=== PATIENT | male | born 1985 | race Caucasian/White ===

== ENCOUNTER 2016-03-08 20:08 | Emergency (ER) | payer OTHER ==
[2016-03-08] MEDS ORDERED: Sodium Chloride 0.9% 1,000 ML ONE (20:29)
[2016-03-08] MEDS ORDERED: Ondansetron HCl/PF 4 MG/2 ML Vial ONE (20:29)
[2016-03-08 20:38] LABS: #Basophils 0.1 thou/uL (0.0-0.2); #Eosinphils 0.3 thou/uL (0.0-0.7); #Lymphocytes 1.8 thou/uL (1.20-3.40); #Monocytes 0.6 thou/uL (0.11-0.59); #Neutrophils 8.1 thou/uL (1.40-6.50); %Basophils 0.7 % (0.0-1.0); %Eosinophils 2.9 % (0.0-10.0); %Lymphocytes 16.4 % (21.0-51.0); %Monocytes 5.1 % (0.0-10.0); Mean Platelet Volume 8.9 fL (7.4-10.4); Red Blood Cell (RBC) Count 4.94 mill/uL (4.70-6.10); White Blood Cell (WBC) Count 10.8 thou/uL (4.8-10.8)
[2016-03-08 20:56] LABS: ALT (SGPT) 27 U/L (0-55); AST (SGOT) 19 U/L (5-34); Alkaline Phosphatase 94 U/L (40-150); Anion Gap 14 mmol/L (10-20); BUN (Urea Nitrogen) 12 mg/dL (8.9-20.6); Bilirubin, Total 0.6 mg/dL (0.2-1.2); Calc. Creatinine Clearance 0 mL/min (70-130); Calcium 9.4 mg/dL (7.8-10.44); Carbon Dioxide 24 mmol/L (22-29); Chloride 106 mmol/L (98-107); Estimated GFR-MDRD Greater than 90; Globulin 3.3 g/dL (2.4-3.5); Protein, Total 7.2 g/dL (6.0-8.3)
--- NOTE | 2016-03-08 23:05 | ERRECORD ---
[facility] EMERGENCY RECORD HPI NAUSEA/VOMITING/DIARRHEA (20:24 BPIC) CHIEF COMPLAINT: Patient presents for evaluation of nausea, Patient presents for evaluation of vomiting, Patient presents for evaluation of diarrhea. HISTORIAN: History provided by patient, Pt with N/V/D that has started within the past 24-48 hours. No unusual travel, food or sick contacts. Mild non focal abdominal cramping that has now stopped. still feels slightly light headed. LOCATION FEMALE: Symptoms are generalized. TIME COURSE: Gradual onset of symptoms, There has been no change in the patient's symptoms over time. ASSOCIATED WITH FEMALE: No associated bright red blood per rectum, No associated hematemesis. EXACERBATED BY: Patient's condition exacerbated by nothing. RELIEVED BY: Patient's condition relieved by nothing. ROS (20:24 BPIC) CONSTITUTIONAL: Negative constitutional review of systems, Historian denies chills, Historian denies fever. EYES: Negative eye review of systems. ENT: Negative ears, nose, throat review of systems. CARDIOVASCULAR: Negative cardiovascular review of systems, Historian denies chest pain, Historian denies palpitations. RESPIRATORY: Negative respiratory review of systems, Historian denies cough, Historian denies shortness of breath. GI: see hpi. MUSCULOSKELETAL: Negative musculoskeletal review of systems. SKIN: Negative skin review of systems. NEUROLOGIC: Negative neurologic review of systems. ENDOCRINE: Negative endocrine review of systems. HEMO/LYMPHATIC: Normal hematologic/lymphatic system review. PSYCHIATRIC: Negative psychiatric review of systems. NOTES: All other ROS is negative except as listed in HPI. PAST MEDICAL HISTORY MEDICAL HISTORY: No past medical history, VERIFEID 03/08/2015. (20:21 DOEC) MALE SURGICAL HISTORY: Surgical history of tonsillectomy. VERIFEID 03/08/2015. (20:21 DOEC) PSYCHIATRIC HISTORY: No previous psychiatric history. VERIFEID 03/08/2015. (20:21 DOEC) SOCIAL HISTORY: Patient drinks socially, Patient denies drug use, Patient currently uses tobacco, smokes cigarettes, Occasional or some day smoker, Patient is a former tobacco user, smoked cigarettes, Patient quit smoking less than 10 years ago VERIFEID 03/08/2015. (20:21 DOEC) NOTES: I have reviewed and agree with the &a-1R&a+25V*p+0X*[id number]*c202B*c15G*c2P*p-0X&a-25V&a+1R Name: Jose Alberto Cruz : 1985 M30 MedRec: [id number] AcctNum: [id number] Prepared: Carol Mar 09, 2016 03:39 by Interface Page 1 of 3 pMD [facility] EMERGENCY RECORD PMH/PSxH/FamHx/SocHx obtained by the nurse. (20:24 BPIC) KNOWN ALLERGIES No Known Allergies (Unconfirmed) No Known Drug Allergies NONE (Unconfirmed) CURRENT MEDICATIONS (20:18 DOEC) None VITAL SIGNS VITAL SIGNS: BP: 159/72, Pulse: 105, Resp: 22 (Non-Labored), O2 sat: 98 on Room Air, Time: 03/08/2016 20:18. (20:18 DOEC) BP: 135/62, Pulse: 94, Resp: 18, Pain: 0, O2 sat: 95 on Room Air, Time: 03/08/2016 20:35. (20:35 DOEC) BP: 135/62, Pulse: 91, Resp: 18, O2 sat: 98 on Room Air, Time: 03/08/2016 20:39. (20:39 [facility]) Temp: 97.9 (Oral), Time: 03/08/2016 20:36. (20:36 DOEC) PHYSICAL EXAM (20:24 BPIC) CONSTITUTIONAL: Vital signs reviewed, Patient appears non toxic, Patient alert and oriented to person, place and time, Pt is in no apparent distress. HEAD: Head exam included findings of head atraumatic, normocephalic. EYES: Eye exam included findings of eyelids normal to inspection, Pupils equally round and reactive to light, Extraocular muscles intact. ENT: ENT exam normal, Nose exam normal, no nasal deformity, no bleeding from nares, Pharynx exam normal, Mouth exam normal, mucous membranes moist. NECK: Neck exam included findings of normal range of motion, Trachea midline. RESPIRATORY CHEST: Respiratory and chest exam normal, Breath sounds clear, No wheezing, No rales, Chest exam included findings of chest movement symmetrical, Chest expansion equal. CARDIOVASCULAR: Cardiovascular assessment normal, Cardiovascular exam included findings of heart rate tachycardic rate and rhythm, Heart sounds normal. ABDOMEN FEMALE: Abdominal exam included findings of abdomen nontender, Bowel sounds normal, no mass, no pulsatile masses, no peritoneal signs. BACK: Back exam included findings of normal inspection, range of motion normal, no costovertebral angle tenderness. UPPER EXTREMITY: Upper extremity exam included findings of inspection normal, Range of motion normal. LOWER EXTREMITY: Lower extremity exam included findings of inspection normal, Range of motion normal. NEURO: Neuro exam findings include patient oriented to person, place and time, Speech normal, no focal motor deficits, no &a-1R&a+25V*p+0X*d5425U*c202B*c15G*c2P*p-0X&a-25V&a+1R Name: Jose Alberto rCuz : 1985 M30 MedRec: [id number] AcctNum: [id number] Prepared: Carol Mar 09, 2016 03:39 by Interface Page 2 of 3 pMD [facility] EMERGENCY RECORD focal sensory deficits. SKIN: Skin exam included findings of skin warm, dry, and normal in color. LYMPHATIC: Lymphatic exam normal. PSYCHIATRIC: Psychiatric exam included findings of patient oriented to person place and time, Normal affect. MEDICATION ADMINISTRATION SUMMARY Drug Name: ondansetron HCl intravenous, Dose Ordered: 8 mg, Route: IV Push, Status: Given, Time: 20:33 03/08/2016, Drug Name: sodium chloride 0.9 % intravenous, Dose Ordered: 1000 mL, Route: IV Fluid Infusion, Status: Given, Time: 20:32 03/08/2016, Detailed record available in Medication Service section. DOCTOR NOTES (20:24 BPIC) TEXT: N/V/D symptomatic treatment, icreased fluid intake and Return to the ED with any development of increasing abdominal pain. likely viral gastroenteritis, but risks of appendicitis discussed I discussed the diagnosis with the patient prior to discharge. All questions were answered. There is no indication for admission currently and the patient will follow up with his primary care physician. Any pertinent labs or imaging was reviewed and dicussed with the patient. If any new or emergent symptoms occur, the patient will return to the emergency department. PROBLEM LIST No recorded problems DIAGNOSIS (21:11 BPIC) FINAL: PRIMARY: Nausea with vomiting, ADDITIONAL: near syncope. PRESCRIPTION (21:17 BPIC) Zofran ODT: TABLET,DISINTEGRATING : 8 mg : ORAL : Quantity: 8 Unit: mg Route: ORAL Schedule: every 6 hours PRN Dispense: 20 Unit: tab(s) May substitute. Refills: No Refills . NOTES: No Refills. DISPOSITION PATIENT: Disposition Type: Discharge, Disposition: *Discharge Home, Condition: Good. (21:11 BPIC) Patient left the department. (21:53 DOEC) Pedro: BPIC=MD Cinthia, Frank DOEC=ORIANA Helton, Edu [facility]=ORIANA Lloyd, Nicole &a-1R&a+25V*p+0X*[id number]*c202B*c15G*c2P*p-0X&a-25V&a+1R Name: Jose Alberto Cruz [place] : 1985 M30 MedRec: [id number] AcctNum: [id number] Prepared: Carol Mar 09, 2016 03:39 by Interface Page 3 of 3 pMD MTDD
--- NOTE | 2016-03-08 23:13 | PICIS ---
[facility] EMERGENCY RECORD TRIAGE (20:17 DOEC) TRIAGE NOTES: Pt, states became dizzy, nauseous, and vomited (food contents) approx. 45min CONCESSION SUPERVISOR. (20:17 DOEC) PATIENT: NAME: Jose Alberto Cruz, AGE: 30, GENDER: male, : Sun1985, TIME OF GREET: SunMar 08, 2016 20:08, PREFERRED LANGUAGE: Algerian, ETHNICITY: Not or , ECODE BILLING MAP: [facility], SSN: [id number], Zip Code: [address], KG WEIGHT: [phone], PHONE: , , , PERSON ID: [id number], PCP: DO Santizo Eric. (20:17 DOEC) COMPLAINT: WEAKNESS. (20:17 DOEC) ADMISSION: URGENCY: 3 Urgent, ADMISSION SOURCE: Home, TRANSPORT: Walk-in, BED: ER -03. (20:17 DOEC) SIRS SCORING: Heart Rate 55-109 (0), Temp range 96.8-101.1 (0), respiratory rate 12-24 (0), Mental Status altered: no (0), Infection or Suspected Infection: No. (20:21 DOEC) TRIAGE SCREENING: Patient denies suicidal ideation, Patient denies presence of domestic violence. (20:21 DOEC) PROVIDERS: TRIAGE NURSE: Edu Helton RN. (20:17 DOEC) PREVIOUS VISIT ALLERGIES: No Known Allergies. (20:17 DOEC) No Known Allergies. (20:21 DOEC) KNOWN ALLERGIES No Known Allergies (Unconfirmed) No Known Drug Allergies NONE (Unconfirmed) CURRENT MEDICATIONS (20:18 DOEC) None VITAL SIGNS VITAL SIGNS: BP: 159/72, Pulse: 105, Resp: 22 (Non-Labored), O2 sat: 98 on Room Air, Time: 03/08/2016 20:18. (20:18 DOEC) BP: 135/62, Pulse: 94, Resp: 18, Pain: 0, O2 sat: 95 on Room Air, Time: 03/08/2016 20:35. (20:35 DOEC) BP: 135/62, Pulse: 91, Resp: 18, O2 sat: 98 on Room Air, Time: 03/08/2016 20:39. (20:39 [facility]) Temp: 97.9 (Oral), Time: 03/08/2016 20:36. (20:36 DOEC) NURSING ASSESSMENT: HEAD-TO-TOE (20:21 DOEC) CONSTITUTIONAL: Patient arrives ambulatory, Gait steady, History obtained from patient, Patient appears comfortable, Patient cooperative, Patient alert, Oriented to person, place and time, Skin warm, Skin dry, Skin normal in color, Mucous membranes pink, Mucous membranes moist, Patient is well-groomed, pt reports becoming dizzy and nauseous at work approx. 45min lpta. vomited food contents. 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 denies any pain at this time. PAIN: Patient rates pain as 0 out of 10. SKIN: Skin assessment findings include skin warm, Skin dry, Skin &a-1R&a+25V*p+0X*t2687W*c202B*c15G*c2P*p-0X&a-25V&a+1R Name: Jose Alberto Cruz : 1985 M30 MedRec: [id number] AcctNum: [id number] Prepared: Carol Mar 09, 2016 03:45 by Interface Page 1 of 8 pMD [facility] EMERGENCY RECORD normal in color, Notes: Red, dry, scaly patches noted to bilateral knuckles, lower anterior legs. States he's "had this for years and doctors don't know what it is.". NEURO: Pupils equally round and reactive to light, Able to close eyes, Face symmetrical, Speech normal, no ptosis, no nystagmus, no visual changes, no facial droop, no facial numbness, no swelling, no paresthesias, Hand grasps equal, Upper extremity strength strong, no numbness to upper extremities, Lower extremity strength strong, Foot press equal, no numbness to lower extremities, Associated with dizziness described as, feeling unsteady, patient spinning, no associated fever, Associated with nausea, no associated syncopal episode, Associated with vomiting, history, Number of times: 1, of food, Associated with weakness. RESPIRATORY/CHEST: Breath sounds clear, Respiratory assessment findings include respiratory effort easy, Respirations regular, Conversing normally, Neck and chest exam findings include trachea midline, Chest expansion equal, Chest movement symmetrical, no signs of distress, no associated cough noted, no associated fever. CARDIOVASCULAR: Cardiovascular assessment findings include heart rate, tachycardic, Rate 105, Heart sounds normal, Left radial pulse +3(easily palpated, considered normal), Right radial pulse +3(easily palpated, considered normal), Left dorsalis pedis pulse +3(easily palpated, considered normal), Right dorsalis pedis pulse +3(easily palpated, considered normal), No associated diaphoresis, no associated dyspnea, Associated with dizziness, described as patient spinning, no associated edema, no associated palpitations, no associated paresthesias, no associated syncopal episode, no associated weakness. ABDOMEN: Abdomen assessment findings include abdomen symmetrical, Abdomen soft, non-tender, Bowel sound normal, Associated with nausea, Associated with vomiting, history of vomiting, Number of times: 1, vomiting food, no associated diarrhea. NOTES: Patient tolerated procedure well. SAFETY: Side rails up, Cart/Stretcher in lowest position, Family at bedside, Call light within reach, Hospital ID band on. NURSING PROCEDURE: DISCHARGE NOTE (21:52 DOEC) DISCHARGE: Patient discharged to home, ambulating without assistance, family driving, accompanied by //partner, Summary of Care printed/ provided, Patient requested and was provided an electronic copy of Discharge Instructions, Transition record given to patient, Discharge instructions given to patient, Prescriptions given and instructions on side effects given, Name of prescription(s) given: ZOFRAN 8MG, Above person(s) verbalized understanding of discharge instructions and follow-up care, Patient treated and evaluated by physician, Notes: Pt verbalized understanding of discharge instructions. Denied any questions. Pt ambulatory to discharge desk. VSS. NAD. &a-1R&a+25V*p+0X*b0380L*c202B*c15G*c2P*p-0X&a-25V&a+1R Name: Jose Alberto Cruz : 1985 M30 MedRec: [id number] AcctNum: [id number] Prepared: Carol Mar 09, 2016 03:45 by Interface Page 2 of 8 pMD [facility] EMERGENCY RECORD BELONGINGS: Belongings and valuables with patient at time of discharge include:, Belongings remain with patient, Valuables remain with patient. NURSING PROCEDURE: IV PATIENT IDENITIFIER: Patient actively involved in identification process, Patient's identity verified by patient stating name, Patient's identity verified by patient stating date, Patient's identity verified by hospital ID bracelet. (20:30 DOEC) IV SITE 1: IV therapy indicated for hydration, IV therapy indicated for medication administration, IV established, to the right antecubital, using an 18 gauge catheter, in one attempt, IV site prepped with Chloraprep, Labs drawn at time of placement, labeled in the presence of the patient and sent to lab. (20:30 DOEC) FOLLOW-UP SITE 1: After procedure, sterile transparent dressing applied, After procedure, no drainage at IV site, After procedure, no swelling at IV site, After procedure, no redness at IV site. (20:30 DOEC) After procedure, 2x2 dressing applied, After procedure, no drainage at IV site, After procedure, no swelling at IV site, After procedure, no redness at IV site, IV discontinued, due to patient being discharged, catheter intact. (21:52 DOEC) NOTES: Emotional support needed and given. (20:30 DOEC) NURSING PROCEDURE: NURSE NOTES (20:21 DOEC) NURSES NOTES: Patient examined by physician. ORDER DETAILS Order Name: CBC with Differential, Status: Active, Time: 20:24 03/08/2016, User: BPMIMA, - Ordered for: MD Vicente Bryan, - Entered by: MD Vicente Bryan - SunMar 08, 2016 20:24, - Quantity: 1, Order Name: Comprehensive Metabolic Panel, Status: Active, Time: 20:24 03/08/2016, User: BPIC, - Ordered for: MD Vicente Bryan, - Entered by: MD Vicente Bryan - Jakob Mar 08, 2016 20:24, - Quantity: 1, Order Name: SALINE LOCK, Status: Done, Time: 20:34 03/08/2016, User: DOEC, - Ordered for: MD Vicente Bryan, - Entered by: MD Vicente Bryan - Jakob Mar 08, 2016 20:24, - Quantity: 1. MEDICATION ADMINISTRATION SUMMARY Drug Name: ondansetron HCl intravenous, Dose Ordered: 8 mg, Route: IV Push, Status: Given, Time: 20:33 03/08/2016, Drug Name: sodium chloride 0.9 % intravenous, Dose Ordered: 1000 mL, &a-1R&a+25V*p+0X*d9976O*c202B*c15G*c2P*p-0X&a-25V&a+1R Name: Jose Alberto Cruz : 1985 M30 MedRec: [id number] AcctNum: [id number] Prepared: [facility] Mar 09, 2016 03:45 by Interface Page 3 of 8 pMD [facility] EMERGENCY RECORD Route: IV Fluid Infusion, Status: Given, Time: 20:32 03/08/2016, Detailed record available in Medication Service section. MEDICATION SERVICE ondansetron HCl intravenous: Order: ondansetron HCl intravenous (ondansetron HCl) - Dose: 8 mg : IV Push Ordered by: Frank Vicente MD Entered by: Frank Vicente MD SunMar 08, 2016 20:24 Documented as given by: Nicole Lloyd RN SunMar 08, 2016 20:33 Patient, Medication, Dose, Route and Time verified prior to administration. Amount given: 8mg, IV SITE #1 IVP, initial medication, Slowly, Awake and alert- acceptable, Catheter placement confirmed via flush prior to administration, IV site without signs or symptoms of infiltration during medication administration, No swelling during administration, No drainage during administration, IV flushed after administration, Correct patient, time, route, dose and medication confirmed prior to administration, Patient advised of actions and side-effects prior to administration, Allergies confirmed and medications reviewed prior to administration. sodium chloride 0.9 % intravenous: Order: sodium chloride 0.9 % intravenous (0.9 % sodium chloride) - Dose: 1000 mL : IV Fluid Infusion Ordered by: Frank Vicente MD Entered by: Frank Vicente MD SunMar 08, 2016 20:24 Documented as given by: Nicole Lloyd RN SunMar 08, 2016 20:32 Patient, Medication, Dose, Route and Time verified prior to administration. IV SITE #1 IV fluids established for hydration, IV SITE #1 into right antecubital, IV SITE #1 1st bag hung, amount 1 Liter hung, IV SITE #1 bolus of 1000 ml established, IV SITE #1 Rate of bolus, wide open, via primary tubing, via pump tubing, Awake and alert- acceptable, Catheter placement confirmed via flush prior to administration, IV site without signs or symptoms of infiltration during medication administration, No swelling during administration, No drainage during administration, IV flushed after administration, Correct patient, time, route, dose and medication confirmed prior to administration, Patient advised of actions and side-effects prior to administration, Allergies confirmed and medications reviewed prior to administration. : Follow Up : Response assessment performed, No signs or symptoms of allergic reaction noted, _IV SITE #1:_, IV fluid infusion discontinued, on SunMar 08, 2016 21:30, ., Total amount infused: 800ML, IV Line flushed after administration, Advised not to ambulate without assistance, Patient in position of comfort, Side rails up, Cart in lowest position, Family at bedside, Call light in reach. (21:52 DOEC) HPI NAUSEA/VOMITING/DIARRHEA (20:24 BPIC) CHIEF COMPLAINT: Patient presents for evaluation of nausea, Patient presents for evaluation of vomiting, &a-1R&a+25V*p+0X*k8746T*c202B*c15G*c2P*p-0X&a-25V&a+1R Name: Jose Alberto Cruz : 1985 M30 MedRec: [id number] AcctNum: [id number] Prepared: [facility] Mar 09, 2016 03:45 by Interface Page 4 of 8 pMD [facility] EMERGENCY RECORD Patient presents for evaluation of diarrhea. HISTORIAN: History provided by patient, Pt with N/V/D that has started within the past 24-48 hours. No unusual travel, food or sick contacts. Mild non focal abdominal cramping that has now stopped. still feels slightly light headed. LOCATION FEMALE: Symptoms are generalized. TIME COURSE: Gradual onset of symptoms, There has been no change in the patient's symptoms over time. ASSOCIATED WITH FEMALE: No associated bright red blood per rectum, No associated hematemesis. EXACERBATED BY: Patient's condition exacerbated by nothing. RELIEVED BY: Patient's condition relieved by nothing. ROS (20:24 BPIC) CONSTITUTIONAL: Negative constitutional review of systems, Historian denies chills, Historian denies fever. EYES: Negative eye review of systems. ENT: Negative ears, nose, throat review of systems. CARDIOVASCULAR: Negative cardiovascular review of systems, Historian denies chest pain, Historian denies palpitations. RESPIRATORY: Negative respiratory review of systems, Historian denies cough, Historian denies shortness of breath. GI: see hpi. MUSCULOSKELETAL: Negative musculoskeletal review of systems. SKIN: Negative skin review of systems. NEUROLOGIC: Negative neurologic review of systems. ENDOCRINE: Negative endocrine review of systems. HEMO/LYMPHATIC: Normal hematologic/lymphatic system review. PSYCHIATRIC: Negative psychiatric review of systems. NOTES: All other ROS is negative except as listed in HPI. PAST MEDICAL HISTORY MEDICAL HISTORY: No past medical history, VERIFEID 03/08/2015. (20:21 DOEC) MALE SURGICAL HISTORY: Surgical history of tonsillectomy. VERIFEID 03/08/2015. (20:21 DOEC) PSYCHIATRIC HISTORY: No previous psychiatric history. VERIFEID 03/08/2015. (20:21 DOEC) SOCIAL HISTORY: Patient drinks socially, Patient denies drug use, Patient currently uses tobacco, smokes cigarettes, Occasional or some day smoker, Patient is a former tobacco user, smoked cigarettes, Patient quit smoking less than 10 years ago VERIFEID 03/08/2015. (20:21 DOEC) NOTES: I have reviewed and agree with the PMH/PSxH/FamHx/SocHx obtained by the nurse. (20:24 BPIC) PHYSICAL EXAM (20:24 BPIC) &a-1R&a+25V*p+0X*f7188K*c202B*c15G*c2P*p-0X&a-25V&a+1R Name: Jose Alberto Cruz : 1985 M30 MedRec: [id number] AcctNum: [id number] Prepared: [facility] Mar 09, 2016 03:45 by Interface Page 5 of 8 D [facility] EMERGENCY RECORD CONSTITUTIONAL: Vital signs reviewed, Patient appears non toxic, Patient alert and oriented to person, place and time, Pt is in no apparent distress. HEAD: Head exam included findings of head atraumatic, normocephalic. EYES: Eye exam included findings of eyelids normal to inspection, Pupils equally round and reactive to light, Extraocular muscles intact. ENT: ENT exam normal, Nose exam normal, no nasal deformity, no bleeding from nares, Pharynx exam normal, Mouth exam normal, mucous membranes moist. NECK: Neck exam included findings of normal range of motion, Trachea midline. RESPIRATORY CHEST: Respiratory and chest exam normal, Breath sounds clear, No wheezing, No rales, Chest exam included findings of chest movement symmetrical, Chest expansion equal. CARDIOVASCULAR: Cardiovascular assessment normal, Cardiovascular exam included findings of heart rate tachycardic rate and rhythm, Heart sounds normal. ABDOMEN FEMALE: Abdominal exam included findings of abdomen nontender, Bowel sounds normal, no mass, no pulsatile masses, no peritoneal signs. BACK: Back exam included findings of normal inspection, range of motion normal, no costovertebral angle tenderness. UPPER EXTREMITY: Upper extremity exam included findings of inspection normal, Range of motion normal. LOWER EXTREMITY: Lower extremity exam included findings of inspection normal, Range of motion normal. NEURO: Neuro exam findings include patient oriented to person, place and time, Speech normal, no focal motor deficits, no focal sensory deficits. SKIN: Skin exam included findings of skin warm, dry, and normal in color. LYMPHATIC: Lymphatic exam normal. PSYCHIATRIC: Psychiatric exam included findings of patient oriented to person place and time, Normal affect. EVENTS TRANSFER: Triage to Emergency Emergency Room -03. (SunMar 08, 2016 20:17 DOEC) Removed from Emergency Emergency Room -03. (21:53 DOEC) DOCTOR NOTES (20:24 BPIC) TEXT: N/V/D symptomatic treatment, icreased fluid intake and Return to the ED with any development of increasing abdominal pain. likely viral gastroenteritis, but risks of appendicitis discussed I discussed the diagnosis with the patient prior to discharge. All questions were answered. There is no indication for admission currently and the patient will follow up with his primary care &a-1R&a+25V*p+0X*v3281K*c202B*c15G*c2P*p-0X&a-25V&a+1R Name: Jose Alberto Cruz Salena : 1985 M30 MedRec: [id number] AcctNum: [id number] Prepared: [facility] Mar 09, 2016 03:45 by Interface Page 6 of 8 pMD [facility] EMERGENCY RECORD physician. Any pertinent labs or imaging was reviewed and dicussed with the patient. If any new or emergent symptoms occur, the patient will return to the emergency department. PROBLEM LIST No recorded problems DIAGNOSIS (21:11 BPIC) FINAL: PRIMARY: Nausea with vomiting, ADDITIONAL: near syncope. DISPOSITION PATIENT: Disposition Type: Discharge, Disposition: *Discharge Home, Condition: Good. (21:11 BPIC) Patient left the department. (21:53 DOEC) INSTRUCTION (21:11 BPIC) DISCHARGE: DIET, VOMITING OR DIARRHEA [6YR-ADULT], NEAR SYNCOPE, UNKNOWN. FOLLOWUP: DO Santizo Eric, [facility], [address] [place] [address], . SPECIAL: Thank you for choosing [facility] for your care today! Please follow up with your primary doctor in the next 2-3 days. Return to the emergency department with any other worsening or emergent symptoms. God bless you!. PRESCRIPTION (21:17 BPIC) Zofran ODT: TABLET,DISINTEGRATING : 8 mg : ORAL : Quantity: 8 Unit: mg Route: ORAL Schedule: every 6 hours PRN Dispense: 20 Unit: tab(s) May substitute. Refills: No Refills . NOTES: No Refills. IMAGING (21:54 DOEC) *DISCHARGE INSTRUCTIONS RECEIPT: Image captured from scanner. *SUPPLY CHARGE SHEET: Image captured from scanner. ADMIN DIGITAL SIGNATURE: ORIANA Helton, Edu. (22:01 DOEC) MD Cinthia, Frank. (SunMar 09, 2016 03:36 BPIC) RESULTS LABORATORY: CBC with Differential Collection DT: SunMar 08, 2016 20:34, White Blood Cell (WBC) Count 10.8 thou/uL, Range (4.8-10.8), Red Blood Cell (RBC) Count 4.94 mill/uL, Range (4.70-6.10), Hemoglobin 14.2 g/dL, Range (14.0-18.0), Hematocrit 44.0 %, Range (42.0-52.0), Mean Corpuscular Volume 89.2 fl, Range (80.0-94.0), &a-1R&a+25V*p+0X*z8071B*c202B*c15G*c2P*p-0X&a-25V&a+1R Name: Jose Alberto Cruz : 1985 M30 MedRec: [id number] AcctNum: [id number] Prepared: SunMar 09, 2016 03:45 by Interface Page 7 of 8 pMD [facility] EMERGENCY RECORD Mean Corpuscular Hemoglobin 28.8 pg, Range (27.0-31.0), Mean Corpuscular HGB CONC 32.2 g/dL, Range (32.0-36.0), RBC Distribution Width 12.3 %, Range (11.5-14.5), Platelet Count 237 thou/uL, Range (130-400), Mean Platelet Volume 8.9 fL, Range (7.4-10.4), %Neutrophils 75.0 %, Range (42.0-75.0), *%Lymphocytes 16.4 - L %, Range (21.0-51.0), %Monocytes 5.1 %, Range (0.0-10.0), %Eosinophils 2.9 %, Range (0.0-10.0), %Basophils 0.7 %, Range (0.0-1.0), *#Neutrophils 8.1 - H thou/uL, Range (1.40-6.50), #Lymphocytes 1.8 thou/uL, Range (1.20-3.40), *#Monocytes 0.6 - H thou/uL, Range (0.11-0.59), #Eosinphils 0.3 thou/uL, Range (0.0-0.7), #Basophils 0.1 thou/uL, Range (0.0-0.2). (20:43 BPIC) Comprehensive Metabolic Panel Collection DT: SunMar 08, 2016 20:34, Sodium 140 mmol/L, Range (136-145), Potassium 3.9 mmol/L, Range (3.5-5.1), Chloride 106 mmol/L, Range (98-107), Carbon Dioxide 24 mmol/L, Range (22-29), Anion Gap 14 mmol/L, Range (10-20), BUN (Urea Nitrogen) 12 mg/dL, Range (8.9-20.6), Creatinine 0.90 mg/dL, Range (0.7-1.3), Estimated GFR-MDRD Greater than 90 , Reference Range for Estimated GFR: Greater than 90, mL/min/1.73 m2 NOTE: The MDRD equation has not been validated for use, with the elderly (over 70 years of age), women, patients with, serious comorbid condition or persons with extremes of body size, muscle, mass, or nutritional status. , *Glucose 115 - H mg/dL, Range (70-105), Calcium 9.4 mg/dL, Range (7.8-10.44), Bilirubin, Total 0.6 mg/dL, Range (0.2-1.2), Protein, Total 7.2 g/dL, Range (6.0-8.3), NOTE: Plasma values are generally 0.3 to 0.5 g/dL higher than serum values, due to the presence of fibrinogen. , Albumin 3.9 g/dL, Range (3.5-5.0), Globulin 3.3 g/dL, Range (2.4-3.5), Alb/Glob Ratio 1.2 g/dL, Range (1.2-2.2), Alkaline Phosphatase 94 U/L, Range (40-150), AST (SGOT) 19 U/L, Range (5-34), ALT (SGPT) 27 U/L, Range (0-55). (21:03 BP) Pedro: BPIC=MD Cinthia, Frank DOEC=ORIANA Helton, Edu LKRC=ORIANA Lloyd, Nicole &a-1R&a+25V*p+0X*q0456A*c202B*c15G*c2P*p-0X&a-25V&a+1R Name: Jose Alberto Cruz Salena : 1985 M30 MedRec: [id number] AcctNum: [id number] Prepared: Carol Mar 09, 2016 03:45 by Interface Page 8 of 8 pMD MTDD
== END 2016-03-08 21:52 | disposition home or self-care (01) ==
LOC: NAV ERS 20:08
DX: R11.2 Nausea with vomiting, unspecified (principal); R55 Syncope and collapse; Z87.891 Personal history of nicotine dependence
CPT/HCPCS: 80053; 85025; 96361; 96374; J2405; J7050

== ENCOUNTER 2017-02-12 00:58 | Emergency (ER) | payer BC ==
[2017-02-12] MEDS ORDERED: Ibuprofen 800 MG TAB ONE (01:43)
== END 2017-02-12 01:55 | disposition home or self-care (01) ==
LOC: NAV ERS 00:58
DX: S39.012A Strain of muscle, fascia and tendon of lower back, initial encounter (principal); I10 Essential (primary) hypertension; F17.210 Nicotine dependence, cigarettes, uncomplicated; X58.XXXA Exposure to other specified factors, initial encounter
CPT/HCPCS: 99283

== ENCOUNTER 2018-04-15 20:58 | Emergency (ER) | payer BC ==
[2018-04-15] MEDS ORDERED: cloNIDine 0.1 MG TAB ONE (21:19)
== END 2018-04-15 22:17 | disposition home or self-care (01) ==
LOC: NAV ERS 20:58
DX: I10 Essential (primary) hypertension (principal); R04.0 Epistaxis; E66.9 Obesity, unspecified; F41.9 Anxiety disorder, unspecified; F17.210 Nicotine dependence, cigarettes, uncomplicated
CPT/HCPCS: 99283

== ENCOUNTER 2018-06-15 20:58 | Emergency (ER) | payer BC ==
[2018-06-15] MEDS ORDERED: Orphenadrine Citrate 60 MG/2 ML VIAL ONE (21:19)
[2018-06-15] MEDS ORDERED: Ketorolac Tromethamine 60 MG/2 ML VIAL ONE (21:19)
== END 2018-06-15 21:41 | disposition home or self-care (01) ==
LOC: NAV ERS 20:58
DX: M54.6 Pain in thoracic spine (principal); F17.210 Nicotine dependence, cigarettes, uncomplicated; F41.9 Anxiety disorder, unspecified; I10 Essential (primary) hypertension; Z79.899 Other long term (current) drug therapy
CPT/HCPCS: 96372; J1885; J2360

== ENCOUNTER 2018-12-08 16:16 | Emergency (ER) | payer BC ==
[2018-12-08] MEDS ORDERED: Adacel (T-DAP) 0.5 ML SYRINGE ONE (16:29)
== END 2018-12-08 16:40 | disposition home or self-care (01) ==
LOC: NAV ERS 16:16
DX: S61.212A Laceration without foreign body of right middle finger without damage to nail, initial encounter (principal); I10 Essential (primary) hypertension; E66.9 Obesity, unspecified; F17.210 Nicotine dependence, cigarettes, uncomplicated; F41.9 Anxiety disorder, unspecified; Z23 Encounter for immunization; W28.XXXA Contact with powered lawn mower, initial encounter
CPT/HCPCS: 90471; 90715

== ENCOUNTER 2020-06-01 01:11 | Emergency (ER) | payer BC ==
[2020-06-01 01:51] LABS: #Basophils 0.1 thou/uL (0.0-0.2); #Eosinphils 0.4 thou/uL (0.0-0.7); #Lymphocytes 2.3 thou/uL (1.20-3.40); #Monocytes 0.6 thou/uL (0.11-0.59); #Neutrophils 7.4 thou/uL (1.40-6.50); %Basophils 0.6 % (0.0-1.0); %Eosinophils 3.5 % (0.0-10.0); %Lymphocytes 21.8 % (21.0-51.0); %Monocytes 5.2 % (0.0-10.0); %Neutrophils 68.8 % (42.0-75.0); Hemoglobin 14.9 g/dL (14.0-18.0); Mean Corpuscular HGB CONC 30.8 g/dL (32.0-36.0); Mean Corpuscular Hemoglobin 28.3 pg (27.0-31.0); Mean Platelet Volume 9.4 fL (7.4-10.4); Platelet Count 232 thou/uL (130-400); RBC Distribution Width 12.1 % (11.5-14.5); Red Blood Cell (RBC) Count 5.27 mill/uL (4.70-6.10); White Blood Cell (WBC) Count 10.7 thou/uL (4.8-10.8)
[2020-06-01 01:54] LABS: PTT 30.4 sec (22.9-36.1); Prothrombin Time 13.8 sec (12.0-14.7)
[2020-06-01 02:04] LABS: ALT (SGPT) 30 U/L (8-55); AST (SGOT) 20 U/L (5-34); Albumin 4.1 g/dL (3.5-5.0); Alkaline Phosphatase 105 U/L (40-110); Anion Gap 16 mmol/L (10-20); BUN (Urea Nitrogen) 15 mg/dL (8.9-20.6); Bilirubin, Total 0.9 mg/dL (0.2-1.2); Calc. Creatinine Clearance 0 mL/min (70-130); Calcium 9.3 mg/dL (7.8-10.44); Carbon Dioxide 24 mmol/L (22-29); Chloride 103 mmol/L (98-107); Globulin 3.1 g/dL (2.4-3.5); Glucose 93 mg/dL (70-105); Potassium 3.8 mmol/L (3.5-5.1); Protein, Total 7.2 g/dL (6.0-8.3); Sodium 139 mmol/L (136-145)
[2020-06-01] MEDS ORDERED: Pantoprazole 40 MG VIAL ONE (02:14)
[2020-06-01] MEDS ORDERED: Sodium Chloride 0.9% 100 ML ONE (02:14)
== END 2020-06-01 03:57 | disposition short-term general hospital (02) ==
LOC: NAV ERS 01:11
DX: K92.2 Gastrointestinal hemorrhage, unspecified (principal); I10 Essential (primary) hypertension; E66.9 Obesity, unspecified; F17.210 Nicotine dependence, cigarettes, uncomplicated
CPT/HCPCS: 71045; 80053; 82271; 82274; 85025; 85610; 85730; 96365; C9113

== ENCOUNTER 2021-03-18 15:48 | Emergency (ER) | payer BC | END 2021-03-18 16:26 | disposition home or self-care (01) | LOC: NAV ERS 15:48 | DX: K08.89 Other specified disorders of teeth and supporting structures (principal); J02.9 Acute pharyngitis, unspecified; I10 Essential (primary) hypertension; E66.9 Obesity, unspecified; F17.210 Nicotine dependence, cigarettes, uncomplicated | CPT/HCPCS: 99283 ==